=== PATIENT | male | born 1970 | race Caucasian/White ===

== ENCOUNTER 2019-03-07 08:28 | Outpatient (CLI) | payer BC ==
--- NOTE | 2019-03-07 12:25 | MRI ---
MRI PELVIS WITH AND WITHOUT CONTRAST PROSTATE PROTOCOL: Date: 03/07/19 HISTORY: R97.2 elevated PSA of 3.87. No biopsy. COMPARISON: None. FINDINGS: Multiplanar, multisequence MRI of prostate performed prior to and after the intravenous administratio n of contrast using prostate protocol. Prostate measures 5.2 x 4.2 x 4.5 cm for a volume of 54 mL. Peripheral zone: No abnormal foci of diffusion restriction. Some linear scar from prior inflammation . Transitional zone: A few heterogeneous encapsulated nodules. Neurovascular bundles: Intact. Prostatic capsule: Intact. Seminal vesicles: Intact. Lymph nodes: No regional adenopathy. Bones. On the T1-weighted imaging sequence, no abnormal foci of marrow signal replacement to suggest osseous metastatic disease. Intrapelvic soft tissues: Unremarkable. IMPRESSION: 1. PI-RADS 2 - Low (clinically significant prostate cancer unlikely to be present). 2. Intact neurovascular bundles and prostatic capsule. 3. No evidence for osseous or local regional lymphatic metastatic disease. POS: [facility]
== END 2019-03-07 08:29 | disposition home or self-care (01) ==
LOC: TBSIIMAG 08:28
PROVIDERS: ATTEND Urology
DX: R97.20 Elevated prostate specific antigen [PSA] (principal)
CPT/HCPCS: 72197

== ENCOUNTER 2019-07-11 12:56 | Outpatient (CLI) | payer BC ==
--- NOTE | 2019-07-11 13:14 | RAD ---
EXAM: XR Lumbar Spine 2 Or 3 View PROVIDED CLINICAL HISTORY: Low back pain. Patient injured back 2 1/2 weeks ago. Patient states low back pain with pain down left leg. COMPARISON: None FINDINGS: There are 6 nonrib-bearing lumbar-type vertebral bodies with evidence of transitional vertebra at the lumbosacral junction. The vertebral body heights are within normal limits. No fracture or subluxation is seen. There is narrowing of the intervertebral disc space at the lumbosacral junction at level of transitional vertebra. No other findings. IMPRESSION: Degenerative changes lumbosacral junction, no fracture or subluxation is seen involving lumbar spine
== END 2019-07-11 12:57 | disposition home or self-care (01) ==
LOC: TBSIIMAG 12:56
PROVIDERS: ATTEND Family Medicine
DX: M54.5 Low back pain (principal); M47.817 Spondylosis without myelopathy or radiculopathy, lumbosacral region
CPT/HCPCS: 72100